=== PATIENT | male | born 1940 | race Two or more races ===

== ENCOUNTER 2018-12-02 13:11 | Outpatient (CLI) | payer OTHER ==
[2018-12-03] MEDS ORDERED: TENORMIN100 M1 PO (12:00)
== END 2018-12-02 13:23 | disposition home or self-care (01) ==
LOC: EDBD 13:11 → RAD 501 13:11
DX: M25.532 Pain in left wrist (principal)

== ENCOUNTER → 2018-12-03 09:03 | Outpatient (CLI) | payer OTHER ==
[~2018-12-03 09:03] MED LIST: TENORMIN100 M1 PO
== END | disposition home or self-care (01) ==
LOC: LAB 09:03 → EDBD 09:03
DX: D64.89 Other specified anemias (principal); E88.89 Other specified metabolic disorders; D68.8 Other specified coagulation defects; N39.0 Urinary tract infection, site not specified; Z22.322 Carrier or suspected carrier of Methicillin resistant Staphylococcus aureus; Z76.89 Persons encountering health services in other specified circumstances; I49.8 Other specified cardiac arrhythmias

== ENCOUNTER 2018-12-03 10:23 | Outpatient (CLI) | payer OTHER ==
[2018-12-03] MEDS ORDERED: TENORMIN100 M1 PO (12:00)
== END 2018-12-03 10:31 | disposition home or self-care (01) ==
LOC: EDBD 10:23 → TOM 10:23
DX: S52.572A Other intraarticular fracture of lower end of left radius, initial encounter for closed fracture (principal)

== ENCOUNTER → 2018-12-08 | Day surgery (SDC) | payer OTHER | END | disposition home or self-care (01) | LOC: EDBD → CIR.AMB 06:20 | DX: S52.572A Other intraarticular fracture of lower end of left radius, initial encounter for closed fracture (principal) | CPT/HCPCS: 25609; 20902; C1776 ==

== ENCOUNTER 2019-01-02 08:17 | Outpatient (CLI) | payer OTHER | END 2019-01-02 08:31 | disposition home or self-care (01) | LOC: RAD 08:17 | DX: S52.532D Colles' fracture of left radius, subsequent encounter for closed fracture with routine healing (principal) ==

== ENCOUNTER → 2019-01-27 | Outpatient (CLI) | payer OTHER | END | disposition home or self-care (01) | LOC: RAD 14:21 | DX: S52.532D Colles' fracture of left radius, subsequent encounter for closed fracture with routine healing (principal) ==

== ENCOUNTER 2019-02-19 12:20 | Outpatient (CLI) | payer OTHER | END 2019-02-19 12:29 | disposition home or self-care (01) | LOC: RAD 12:20 | DX: S52.532D Colles' fracture of left radius, subsequent encounter for closed fracture with routine healing (principal) ==

== ENCOUNTER 2019-02-19 12:55 | Outpatient (CLI) | payer OTHER | END 2019-02-19 13:15 | disposition home or self-care (01) | LOC: LAB 12:55 | DX: E56.1 Deficiency of vitamin K (principal); E55.9 Vitamin D deficiency, unspecified ==